=== PATIENT | female | born 1965 | race Two or more races ===

== ENCOUNTER 2024-04-11 12:55 | Emergency (ER) | payer MEDICAID, SELFPAY ==
[2024-04-11 13:38] VITALS: BP 124/72; PULSE 63; RESP 16; TEMP 37.2; O2SAT 96; BMI 24.5
--- NOTE | 2024-04-11 13:41 | XR_ITS ---
Examination: Foot, right, 3 views Technique: AP, oblique, lateral views foot, 3 views Date and time of exam: April 11, 2024 1346 hours INDICATIONS: Right foot pain beginning one week ago. FINDINGS: Mild bunion deformity Mild narrowing first metatarsophalangeal joint No fracture 4 mm plantar bony calcaneal spur Ossification in the plantar fascia IMPRESSION: Mild bunion deformity Mild narrowing first metatarsophalangeal joint 4 mm plantar bony calcaneal spur
--- NOTE | 2024-04-11 13:41 | XR_ITS ---
Examination: Tibia-Fibula, right , 2 views Technique: Tibia-fibula AP lateral 2 views Date and time of exam: April 11, 2024 1343 hours INDICATIONS: Right leg pain beginning one week ago FINDINGS: No fracture or dislocation No cortical bone destruction IMPRESSION: No fracture or dislocation
--- NOTE | 2024-04-11 13:41 | XR_ITS ---
Examination: Knee, right , 3 views Technique: Knee AP, lateral, oblique 3 views Date and time of exam: April 11, 2024 1343 hours INDICATIONS: Right knee pain beginning one month ago. FINDINGS: Moderate osteopenia Mild to moderate narrowing medial joint space right knee No fracture or dislocation IMPRESSION: Mild to moderate narrowing medial joint space right knee
--- NOTE | 2024-04-11 13:41 | XR_ITS ---
Examination: Duplex scan of the lower extremity, unilateral right complete Date and time of exam: April 11, 2024 1423 hours INDICATIONS: Right leg pain beginning 3 days ago Technique: Duplex scan of the extremity veins using B-mode/grayscale imaging and Doppler spectral analysis and color flow Attention is directed to internal echogenicity, compression and augmentation involving these veins, color flow assessment, spectral analysis Findings: Major deep venous structures in the extremity demonstrate normal course and caliber. There is no evidence of deep vein thrombosis. Normal color flow and spectral analysis Impression: Negative for DVT..
--- NOTE | 2024-04-11 14:59 | PD.EDLOWEX ---
Lower Extremity Injury RME/HPI General Chief Complaint: Extremity Injury, Lower Stated Complaint: RIGHT LEG PAIN Time Seen by Provider: 04/11/24 13:33 Arrival date/time: 04/11/24 12:55 58-year-old female presents emergency department complains of right leg pain patient reports pain worse with movement patient for symptoms ongoing for last few days Limitations: no limitations Related Data Previous Rx's ?Medication ?Instructions ?Recorded ibuprofen 600 mg tablet 600 mg PO Q6H #30 tabs 04/11/24 Allergies Allergy/AdvReac Type Severity Reaction Status Date / Time No Known Allergies Allergy Verified 04/11/24 12:57 Review of Systems Review of Systems Systems Reviewed: All systems reviewed, normal except as documented Constitutional Constitutional: Reports system reviewed and no additional complaints, except as documented, Denies fever(s) and Denies headache(s) Eyes Eyes: Reports system reviewed and no additional complaints, except as documented and Denies blurry vision ENT Ears, Nose, Mouth, and Throat: Reports system reviewed and no additional complaints, except as documented, Denies headache(s), Denies nasal congestion and Denies nasal discharge Cardiovascular Cardiovascular: Reports system reviewed and no additional complaints, except as documented, Denies chest pain and Denies dyspnea Respiratory Respiratory: Reports system reviewed and no additional complaints, except as documented, Denies chest congestion, Denies cough and Denies dyspnea Gastrointestinal Gastrointestinal: Reports system reviewed and no additional complaints, except as documented and Denies abdominal pain Musculoskeletal Musculoskeletal: Reports system reviewed and no additional complaints, except as documented, Reports abnormal gait, Reports arthralgias, Denies numbness, Denies stiffness and Denies tingling Integumentary/Breasts Skin/Breast: Reports system reviewed and no additional complaints, except as documented and Denies rash Neurologic Neurologic: Reports system reviewed and no additional complaints, except as documented, Reports as per HPI, Reports abnormal gait, Denies headache(s), Denies numbness and Denies tingling Past Medical History Past Medical History NEUROLOGIC: Negative Neurological Disorders CARDIAC: Negative Cardiac Disorders ED Exam General Limitations: Present no limitations General appearance: Present alert and in no apparent distress Head Head exam: Present atraumatic Eye Eye exam: Present normal appearance, PERRL and EOMI ENT ENT exam: Present normal exam, normal oropharynx and mucous membranes moist Neck Neck exam: Present normal inspection, full ROM and trachea midline Chest Chest inspection: Present normal inspection and symmetric chest wall rise Respiratory Respiratory exam: Present normal lung sounds bilaterally Cardiovascular Cardiovascular exam: Present regular rate, normal rhythm and normal heart sounds Abdominal Exam Abdominal exam: Present soft and normal bowel sounds Extremities Exam Extremities exam: Present full ROM, tenderness (Leg pain) and normal capillary refill; Absent pedal edema, joint swelling or calf tenderness Back Exam Back exam: Present normal inspection and full ROM Neurological Exam Neurological exam: Present alert, oriented X3 and CN II-XII intact Psychiatric Psychiatric exam: Present normal affect and normal mood Skin Skin exam: Present warm, dry, intact and normal color Course Quality Measures none Orders Category Date Time Status US venous doppler LE RT Stat Exams 04/11/24 13:41 Completed XR foot comp RT min 3V Stat Exams 04/11/24 13:41 Completed XR knee RT 3V Stat Exams 04/11/24 13:41 Completed XR tibia fibula RT 2V Stat Exams 04/11/24 13:41 Completed Vital Signs Vital signs: Vital Signs Temperature 98.9 F 04/11/24 13:38 Pulse Rate 63 04/11/24 13:38 Respiratory Rate 16 04/11/24 13:38 Blood Pressure 124/72 04/11/24 13:38 Pulse Oximetry (%) 96 04/11/24 13:38 Oxygen Delivery Method Room Air 04/11/24 13:38 O2 saturation 96% on room air within normal limits Extremity Injury, Lower MDM Narrative MDM Narrative:: 58-year-old female presents emergency department complains of right leg pain patient reports pain worse with movement patient for symptoms ongoing for last few days On exam patient well-appearing patient does not appear ill or toxic in no acute distress Imaging obtained no acute emergent findings noted Patient discharged home in no distress to follow-up with primary care doctor in the next 24 to 48 hours and for any worsening symptoms to return to the ER immediately Patient data External records reviewed:: [facility] previous records Clinical information provided by:: patient Social determinants that could affect healthcare access:: none Patient has the following chronic illnesses:: None How is presenting disease/condition affected by chronic disease/condition?: no chronic disease Evaluation data The following diagnostics were reviewed and interpreted by me:: lab results and radiology exam(s) Lab and/or radiology exams considered but not ordered:: Labs radiology obtained Interpretation Summary: Reviewed by me Medications / Prescriptions Medications or Prescriptions considered but not ordered:: Given Medication administrations:: Given Consultations Consultation(s) initiated? (list below): No Diagnosis Extremity Injury, Lower Differential Diagnosis: other (Foot sprain, foot fracture) Most likely diagnosis given after review of the tests above:: Sprain Admission Indicated Admission indicated?: not indicated Admission Request Was there a request for admission?: No Disposition Plan Disposition Plan: Discharge Discharge Attestation Discharge Attestation: The patient and all family members were given an opportunity to ask questions and understood the discharge instructions. Discharge instructions specifically effects, indications for sooner follow up or return to the emergency department, and the expected course of current diagnosis. Patient condition: Stable Discharge Plan Plan Patient Disposition: HOME (Self Care) Disposition Comment: Stable Prescriptions/Referrals Prescriptions/Med Rec: New ibuprofen 600 mg tablet 600 mg PO Q6H Qty: 30 0RF Referrals: Basil Pierre MD [Primary Care Provider] - In 1 week Problem List Clinical Impression: Foot pain, right Patient/Caregiver Discharge Instructions Education Materials: ED Myalgias Additional Instructions: Please follow up with your primary care doctor in the next 24-48hrs for any worsening symptoms return here immediately Print Language: Sammarinese Stand Alone Forms: Richa Award Info., Patient Portal Info Letter PA/ASHLEY Supervising Physician GEOFFREY/ASHLEY Supervising Physician: Dr Dupont
== END 2024-04-11 19:03 | disposition home or self-care (01) ==
PROVIDERS: Emergency Provider Emergency Medicine; PCP Family Medicine
DX: M79.671 Pain in right foot (principal); M79.604 Pain in right leg; M25.561 Pain in right knee
CPT/HCPCS: 73562; 73590; 73630; 93971; 99284